=== PATIENT | female | born 1945 | race Caucasian/White ===

== ENCOUNTER → 2019-05-24 | Outpatient (CLI) | payer OTHER ==
[~2019-05-24] MED LIST: ACTOS 30 MG TAB30 MG PO; ALEVE220 MG PO; AMARYL4 MG PO; ASPIRIN EC81 M1 PO; AUGMENTIN 875875 MG PO; CYMBALTA60 MG PO; DIFLUCAN150 M1 PO; DOXYCYCLINE 10100 MG PO; EXCEDRIN MIGRA1 EAC1 PO; FISH OIL 1,2001 EAC4 PO; FISHOIL PO; FLONASE 0.05%50 MCG NASAL; GLUCOPHAGE1000 MG PO; GLUCOSAMINE-MS1 EAC3 PO; HYDROCODON-ACE1 EAC7 PO; HYDROCODON-ACE1 EACH PO; IRON325 PO; JANUVIA100 MG PO; L-THYROXINE PO; LISINOPRIL-HCT1 EAC2 PO; MOBIC15 MG PO; MULTIVITAMINS PO; SERTRALINE HCL50 MG PO; SILVADENE20 GM; SIMVASTATIN40 MG PO; SLO-NIACIN500 MG PO; SYNTHROID150 MCG PO; TYLENOL325 MG PO; VITAMIN D1000 UNI1 PO; VITAMINC500 PO
== END ==
LOC: ULTRA 14:24
DX: L97.529 Non-pressure chronic ulcer of other part of left foot with unspecified severity (principal); I70.292 Other atherosclerosis of native arteries of extremities, left leg